=== PATIENT | male | born 1950 | race Caucasian/White ===

== ENCOUNTER 2022-05-10 08:56 | Day surgery (SDC) | payer MEDICARE ==
[2022-05-09 09:41] VITALS: BMI 25.3
[~2022-05-10 08:56] MED LIST: EPINEPHrine 0.3 MG in Ophthalmic Irrigation Solution 500 ML IRR SCH; Midazolam HCl 2 mg/2 ml Vial ONE; fentaNYL PF 100 MCG/2 ML SYRINGE ONE
[2022-05-10] MEDS ORDERED: Phenylephrine 2.5% Ophth Soln 5 ML BOT ONE (09:13)
[2022-05-10] MEDS ORDERED: Cyclopentolate 1% Opth Drop 2 ML BOT ONE (09:13)
[2022-05-10] MEDS ORDERED: Lidocaine 1% PF 5 ML VIAL ONE (10:18)
[2022-05-10] MEDS ORDERED: Lidocaine 4% PF 5 ML AMP ONE (10:18)
[2022-05-10] MEDS ORDERED: Maxitrol 0.1% Opth Oint 3.5 GM TUBE ONE (10:18)
[2022-05-10] MEDS ORDERED: PROPOFOL 200 MG/20 ML VIAL ONE (10:18)
[2022-05-10] MEDS ORDERED: Bupivacaine 0.75% 10 ML VIAL ONE (10:18)
[2022-05-10] MEDS ORDERED: Indocyanine Green 25 MG/10 ML VIAL ONE (10:18)
[2022-05-10] MEDS ORDERED: Triamcinolone 40 MG/ML VIAL ONE (10:18)
[2022-05-10] MEDS ORDERED: CEFAZOLIN 1 GM VIAL ONE (10:18)
== END 2022-05-10 11:55 | disposition home or self-care (01) ==
LOC: SDC 08:56
PROVIDERS: ATTEND Ophthalmology Retina Specialist
PROC: 08T53ZZ Resection of Left Vitreous, Percutaneous Approach (ICD-10-PCS; principal; 2022-05-10)
PROC: 08NF3ZZ Release Left Retina, Percutaneous Approach (ICD-10-PCS; 2022-05-10)
DX: H35.342 Macular cyst, hole, or pseudohole, left eye (principal); I10 Essential (primary) hypertension; E78.5 Hyperlipidemia, unspecified; Z87.891 Personal history of nicotine dependence; Z79.02 Long term (current) use of antithrombotics/antiplatelets; Z79.82 Long term (current) use of aspirin; Z79.899 Other long term (current) drug therapy
CPT/HCPCS: 67025; J0171; J2250